=== PATIENT | female | born 1970 | race Caucasian/White ===

== ENCOUNTER 2018-05-17 07:50 | Day surgery (SDC) | payer MEDICAID ==
[~2018-05-17 07:50] MED LIST: Lactated Ringers 1,000 ML IV SCH; Sodium Chloride 0.9% 10 ML SDV IV PRN; Sodium Chloride 0.9% 10 ML Syringe FLUSH PRN; Sodium Chloride 0.9% 2.5 ML Syringe FLUSH PRN
--- NOTE | 2018-05-17 09:04 | PCM.PREANE ---
Preanesthetic Assessment - Anesthesia/Transfusion/Family Hx Anesthesia History: No Prior Anesthesia Other Type of Anesthesia Reaction Comment: "I wake up swinging or hallucinating " Family History of Anesthesia Reaction: No Transfusion History: No Prior Transfusion(s) - Review of Systems General: No Symptoms Pulmonary: No Symptoms Cardiovascular: No Symptoms Neurological: No Symptoms Other: Reports: None - Physical Assessment NPO Status Date: 05/16/18 NPO Status Time: 21:00 O2 Sat by Pulse Oximetry: 96 Respiratory Rate: 15 Vital Signs: Last Vital Signs Temp 97.2 F 05/17/18 08:10 Pulse 53 L 05/17/18 08:10 Resp 15 05/17/18 08:10 BP 118/69 05/17/18 08:10 Pulse Ox 96 05/17/18 08:10 Height: 5 ft 4 in Weight: 94.801 kg ASA Class: 2 Mental Status: Alert & Oriented x3 Airway Class: Mallampati = 1 Dentition: Reports: Normal Dentition ROM/Head Extension: Full Lungs: Clear to Auscultation, Normal Respiratory Effort Cardiovascular: Regular Rate, Regular Rhythm - Allergies Allergies/Adverse Reactions: Allergies Allergy/AdvReac Type Severity Reaction Status Date / Time walnut Allergy burning in Verified 05/02/17 12:32 MDT mouth, unable to see - Blood Blood Available: No - Anesthesia Plan Pre-Op Medication Ordered: None - Acknowledgements Anesthesia Type Planned: General Anesthesia, MAC Pt an Appropriate Candidate for the Planned Anesthesia: Yes Alternatives and Risks of Anesthesia Discussed w Pt/Guardian: Yes Pt/Guardian Understands and Agrees with Anesthesia Plan: Yes PreAnesthesia Questionnaire HEENT History: Reports: Other (See Below) Other HEENT History: states "occasional blurred vision due to gabapentin" Cardiovascular History: Reports: Arrhythmia, Other (See Below) Other Cardiovascular History: "palpitations", "leaky mitral valve" Respiratory History: Reports: Sleep Apnea Other Respiratory History: uses CPAP Gastrointestinal History: Reports: GERD Genitourinary History: Reports: None 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: , 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 Musculoskeletal History: Reports: Back Pain, Chronic, Fibromyalgia, Other (See Below) Other Musculoskeletal History: joint and muscle pain, Neurological History: Reports: Seizure Other Neuro History: anxiety induced seizure in 1999, none since Psychiatric History: Reports: Anxiety, Depression Endocrine/Metabolic History: Reports: Obesity/BMI 30+ Hematologic History: Reports: None Immunologic History: Reports: None Oncologic (Cancer) History: Reports: None Dermatologic History: Reports: None - Past Surgical History Head Surgeries/Procedures: Reports: None HEENT Surgical History: Reports: None Cardiovascular Surgical History: Reports: None Respiratory Surgical History: Reports: None GI Surgical History: Reports: Appendectomy Female Surgical History: Reports: Section, Hysterectomy, Tubal Ligation, Other (See Below) Other Female Surgeries/Procedures: exploratory laparoscopy, abd hysterectomy Endocrine Surgical History: Reports: None Neurological Surgical History: Reports: None Musculoskeletal Surgical History: Reports: Shoulder Surgery, Other (See Below) Other Musculoskeletal Surgeries/Procedures:: Right rotator cuff repair, Right foot surgery to attempt to remove glass Oncologic Surgical History: Reports: None Dermatological Surgical History: Reports: Other (See Below) - SUBSTANCE USE Smoking Status *Q: Never Smoker Recreational Drug Use History: No - HOME MEDS Home Medications: Home Meds Gabapentin 800 mg PO TID 11/16/15 [History] Meloxicam 7.5 mg PO BID 11/16/15 [History] DULoxetine HCl [Duloxetine HCl] 60 mg PO BEDTIME 05/02/17 [History] Metoprolol Succinate 25 mg PO BID 05/02/17 [History] Pantoprazole Sodium [Protonix] 40 mg PO BID 05/02/17 [History] - CURRENT (IN HOUSE) MEDS Current Meds: Current Medications Lactated Ringer's (Ringers, Lactated) 1,000 mls @ 125 mls/hr IV ASDIRECTED [facility] Last Admin: 05/17/18 08:40 Dose: 125 mls/hr Sodium Chloride (Saline Flush) 10 ml FLUSH ASDIRECTED PRN PRN Reason: Keep Vein Open Sodium Chloride (Saline Flush) 2.5 ml FLUSH ASDIRECTED PRN PRN Reason: Keep Vein Open Sodium Chloride (Normal Saline) 10 ml IV ASDIRECTED PRN PRN Reason: IV Use
[2018-05-17] MEDS ORDERED: Midazolam 1 MG/ML 2 ML SDV ONE (10:39)
[2018-05-17] MEDS ORDERED: Lidocaine 2% 5 ML SDV ONE (10:39)
[2018-05-17] MEDS ORDERED: fentaNYL 100 MCG/2 ML SDV ONE (10:39)
[2018-05-17] MEDS ORDERED: Propofol 200 MG/20 ML SDV ONE (10:53)
--- NOTE | 2018-05-17 11:18 | PCM.OPNOTE ---
- General Post-Op/Procedure Note Date of Surgery/Procedure: 05/17/18 Operative Procedure(s): Diagnostic EGD with biopsy Findings: Hiatal hernia, no signs of esophagitis Pre Op Diagnosis: Hiatal hernia Post-Op Diagnosis: same Anesthesia Technique: MAC Primary Surgeon: Macey Zheng Condition: Good
--- NOTE | 2018-05-17 12:14 | PCM.POSTAN ---
POST ANESTHESIA ASSESSMENT - MENTAL STATUS Mental Status: Alert, Oriented Free Text/Narrative:: initially quiet in PACU , after arrival awoke like a PTSD patient, required manual restraint (no straps or joshua), seizure rails applied. Later while still in phase 1. pt had second episode of agitation, again restrained by multiple providers. Released from phase 1 after 20 min of calm, verbal cooperative - RESPIRATORY Respiratory Status: Respiratory Rate WNL, Airway Patent, O2 Saturation Stable - CARDIOVASCULAR CV Status: Pulse Rate WNL, Blood Pressure Stable - GASTROINTESTINAL GI Status: No Symptoms - POST OP HYDRATION Hydration Status: Adequate & Stable
[2018-05-17 12:26] VITALS: BP 93/58
--- NOTE | 2018-05-17 13:54 | PCM48HPAN ---
Post Anesthesia Note - EVALUATION WITHIN 48HRS OF ANESTHETIC Vital Signs in Normal Range: Yes Patient Participated in Evaluation: Yes Respiratory Function Stable: Yes Airway Patent: Yes Cardiovascular Function Stable: Yes Hydration Status Stable: Yes Pain Control Satisfactory: Yes Nausea and Vomiting Control Satisfactory: Yes Mental Status Recovered: Yes Resp Rate: 15
--- NOTE | 2018-05-17 18:20 | OR ---
SURGEON: MEME CALVILLO MD DATE OF PROCEDURE: 05/17/2018 PREOPERATIVE DIAGNOSIS: Hiatal hernia. POSTOPERATIVE DIAGNOSIS: Hiatal hernia. PROCEDURE PERFORMED: Diagnostic esophagogastroduodenoscopy with biopsy. ANESTHESIA: MAC. INSTRUMENT USED: Olympus endoscope. EXTENT OF EXAM: To the second portion of duodenum. PREPARATION: Good. LIMITATIONS: None. INDICATIONS FOR EXAMINATION: The patient is a 48-year-old female who presents with right upper quadrant pain. She was diagnosed with biliary dyskinesia, but does have a longstanding history of reflux. A preoperative esophagram showed a small to moderate-sized hiatal hernia. Given this finding, the decision was made to proceed with a diagnostic EGD prior to her cholecystectomy. We discussed the procedure, expected perioperative course, and risks including bleeding, infection, or damage to surrounding structures. The patient verbalized understanding and wishes to proceed. PROCEDURE IN DETAIL: The patient was brought into the endoscopy suite and placed in a beach chair position. A time-out was completed verifying the patient's name, age, date of , allergies, and procedure to be performed. A bite-block was placed in the patient's mouth and monitored anesthesia care was induced. Continuous oxygen was provided via nasal cannula throughout the procedure. After adequate sedation was achieved, a well lubricated colonoscope was inserted into the patient's mouth and advanced under direct visualization to the level of the second portion of duodenum. This appeared normal and a photograph was taken. The scope was then straightened out and fully withdrawn while examining the color, texture, anatomy, and integrity of the mucosa of the upper GI tract. The patient's duodenum appeared normal. The scope was brought into the stomach and a photograph was taken of the pylorus and the GE junction. The patient was found to have a small to moderate-sized hiatal hernia. The gastric mucosa had no evidence of gross inflammation or ulceration. Biopsies were taken of the gastric antrum, body, and fundus, and sent for histologic review and H. pylori testing. The scope was then brought into the distal esophagus. The hiatal hernia sac had no evidence of any inflammation or ulcers in it. The GE junction appeared to be slightly patulous. A photograph was taken. The esophageal mucosa did appear normal, however, I took a biopsy about 1 cm above the GE junction. This was sent to Pathology. The scope was then removed and the procedure terminated. The patient tolerated the procedure well and was taken to the PACU in stable condition. ENDOSCOPIC DIAGNOSIS: Hiatal hernia. RECOMMENDATIONS: We will follow up on the biopsy results with the patient in 2 weeks. In the meantime, we will continue to proceed with a laparoscopic possible open cholecystectomy next week. PETER JOHNSON /[id number]
== END 2018-05-17 13:05 | disposition home or self-care (01) ==
LOC: MW.SDS 07:50
PROVIDERS: ATTEND Surgery
DX: K44.9 Diaphragmatic hernia without obstruction or gangrene (principal); K20.9 Esophagitis, unspecified; K21.9 Gastro-esophageal reflux disease without esophagitis; E66.9 Obesity, unspecified; Z68.35 Body mass index [BMI] 35.0-35.9, adult; F41.9 Anxiety disorder, unspecified; F32.9 Major depressive disorder, single episode, unspecified; Z79.899 Other long term (current) drug therapy
CPT/HCPCS: 43239; 88305; 88312; J2001; J2250; J2704; J3010; J7120

== ENCOUNTER 2018-05-24 06:22 | Day surgery (SDC) | payer MEDICAID ==
[~2018-05-24 06:22] MED LIST changes: -Lactated Ringers 1,000 ML IV SCH; +ceFAZolin 2 GM in Premix Bag 1 BAG IV ONE
[2018-05-24] MEDS: Lactated Ringers 1,000 ML IV SCH ×2 (06:50→16:58)
--- NOTE | 2018-05-24 07:14 | PCM.PREANE ---
Preanesthetic Assessment - Anesthesia/Transfusion/Family Hx Anesthesia History: Prior Anesthesia Reaction Other Type of Anesthesia Reaction Comment: "I wake up swinging or hallucinating " Family History of Anesthesia Reaction: No Transfusion History: No Prior Transfusion(s) - Review of Systems General: No Symptoms Pulmonary: No Symptoms Cardiovascular: No Symptoms Gastrointestinal: No Symptoms Neurological: No Symptoms Other: Reports: None - Physical Assessment NPO Status Date: 05/23/18 Height: 5 ft 4 in Weight: 94.801 kg ASA Class: 2 Mental Status: Alert & Oriented x3 Airway Class: Mallampati = 2 Dentition: Reports: Normal Dentition (crooked teeth and narrow palatal arch) ROM/Head Extension: Full Lungs: Clear to Auscultation, Normal Respiratory Effort Cardiovascular: Regular Rate, Regular Rhythm - Allergies Allergies/Adverse Reactions: Allergies Allergy/AdvReac Type Severity Reaction Status Date / Time walnut Allergy burning in Verified 05/21/18 07:08 mouth, unable to see - Blood Blood Available: No - Anesthesia Plan Pre-Op Medication Ordered: Other (scop) - Acknowledgements Anesthesia Type Planned: General Anesthesia Pt an Appropriate Candidate for the Planned Anesthesia: Yes Alternatives and Risks of Anesthesia Discussed w Pt/Guardian: Yes Pt/Guardian Understands and Agrees with Anesthesia Plan: Yes Additional Comments: PPMH: fibromyalgia, gerd(x controled with meds), PTSD like emergences from [place] PLAN: get, consider precidex during emergence PreAnesthesia Questionnaire HEENT History: Reports: None Other HEENT History: states "occasional blurred vision due to gabapentin" Cardiovascular History: Reports: Arrhythmia, Other (See Below) Other Cardiovascular History: palpitations, SVT, NSVT, PVCs Respiratory History: Reports: SOB Other Respiratory History: uses CPAP Gastrointestinal History: Reports: GERD Genitourinary History: Reports: None 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: , 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 , Other (See Below) Other OB/BYN History: irregular menses, pelvic pain Musculoskeletal History: Reports: Fibromyalgia, Other (See Below) Other Musculoskeletal History: joint and muscle pain, shoulder impingement bilateral Neurological History: Reports: Other (See Below) Other Neuro History: 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 Psychiatric History: Reports: Other (See Below) Other Psychiatric History: chronic fatigue Endocrine/Metabolic History: Reports: None Hematologic History: Reports: None Immunologic History: Reports: None Oncologic (Cancer) History: Reports: None Dermatologic History: Reports: None - Past Surgical History Head Surgeries/Procedures: Reports: None HEENT Surgical History: Reports: None Cardiovascular Surgical History: Reports: None Respiratory Surgical History: Reports: None GI Surgical History: Reports: Appendectomy, EGD Female Surgical History: Reports: Section, Other (See Below) Other Female Surgeries/Procedures: hysteroscopy with essure Endocrine Surgical History: Reports: None Neurological Surgical History: Reports: None Musculoskeletal Surgical History: Reports: Shoulder Surgery, Other (See Below) Other Musculoskeletal Surgeries/Procedures:: Right shoulder arthoscopy, Right foot surgery Oncologic Surgical History: Reports: None Dermatological Surgical History: Reports: None - SUBSTANCE USE Smoking Status *Q: Never Smoker Recreational Drug Use History: No - HOME MEDS Home Medications: Home Meds Gabapentin 800 mg PO TID 11/16/15 [History] Meloxicam 7.5 mg PO BID 11/16/15 [History] DULoxetine HCl [Duloxetine HCl] 60 mg PO BEDTIME 05/02/17 [History] Metoprolol Succinate 25 mg PO BID 05/02/17 [History] Pantoprazole Sodium [Protonix] 40 mg PO BID 05/02/17 [History] - CURRENT (IN HOUSE) MEDS Current Meds: Current Medications Lactated Ringer's (Ringers, Lactated) 1,000 mls @ 125 mls/hr IV ASDIRECTED [facility] Sodium Chloride (Saline Flush) 10 ml FLUSH ASDIRECTED PRN PRN Reason: Keep Vein Open Sodium Chloride (Saline Flush) 2.5 ml FLUSH ASDIRECTED PRN PRN Reason: Keep Vein Open Sodium Chloride (Normal Saline) 10 ml IV ASDIRECTED PRN PRN Reason: IV Use Discontinued Medications Cefazolin Sodium/Dextrose 2 gm (/ Premix) 50 mls @ 100 mls/hr IV ONETIME ONE Stop: 05/21/18 11:12
[2018-05-24] MEDS ORDERED: Ondansetron 4 MG/2 ML SDV ONE (07:15)
[2018-05-24] MEDS ORDERED: Midazolam 1 MG/ML 2 ML SDV ONE ×2 (07:16→08:11)
[2018-05-24] MEDS ORDERED: Propofol 200 MG/20 ML SDV ONE (07:16)
[2018-05-24] MEDS ORDERED: Glycopyrrolate 0.2 MG/ML SDV ONE (07:16)
[2018-05-24] MEDS ORDERED: Rocuronium 100 MG/10 ML Syringe ONE (07:16)
[2018-05-24] MEDS ORDERED: fentaNYL 100 MCG/2 ML SDV ONE ×3 (07:16→10:05)
[2018-05-24] MEDS ORDERED: Scopolamine 1.5 MG Transdermal Patch TRDERM PRN (07:16)
[2018-05-24] MEDS ORDERED: Morphine 10 MG/ML Syringe ONE (07:23)
[2018-05-24] MEDS ORDERED: Sugammadex Sodium 200 MG/2 ML VIAL ONE (07:35)
[2018-05-24] MEDS ORDERED: Desflurane 240 ML Bottle ONE (07:35)
[2018-05-24] MEDS ORDERED: Bupivacaine 0.5% 10 ML SDV ONE (07:40)
[2018-05-24] MEDS ORDERED: Sodium Chloride 0.9% 20 ML ONE (08:09)
[2018-05-24] MEDS ORDERED: ceFAZolin 1 GM Vial ONE (08:09)
[2018-05-24] MEDS ORDERED: Phenylephrine/Normal Saline 100 MCG/ML 10 ML Syringe ONE (09:06)
--- NOTE | 2018-05-24 09:51 | PCM.OPNOTE ---
- General Post-Op/Procedure Note Date of Surgery/Procedure: 05/24/18 Operative Procedure(s): laproscopic cholecystectomy Findings: normal gallbladder Pre Op Diagnosis: biliary dyskinesia Post-Op Diagnosis: same Anesthesia Technique: General ET Tube Primary Surgeon: Macey Zheng Secondary Surgeon: Jamila Mcduffie Pathology: gallbladder Fluid Replacement, Intraop: 1,600 Output, Urine Amount: 40 EBL in mLs: 10 Condition: Good
[2018-05-24] MEDS ORDERED: HYDROmorphone 2 MG/ML SDV IVPUSH ONE (10:10)
[2018-05-24] MEDS ORDERED: Acetaminophen/oxyCODONE 325-5 MG Tab PO PRN (10:10)
[2018-05-24] MEDS ORDERED: Albuterol 0.083% 2.5 MG/3 ML Neb Soln NEB PRN (10:11)
[2018-05-24] MEDS ORDERED: Cyclobenzaprine 10 MG Tab PO PRN (10:11)
[2018-05-24] MEDS ORDERED: EPINEPHrine 1:10,000 1 MG/10 ML Syringe IVPUSH PRN (10:11)
[2018-05-24] MEDS ORDERED: Atropine 0.1 MG/ML 10 ML Syringe IVPUSH PRN ×2 (10:11)
[2018-05-24] MEDS ORDERED: 50% Dextrose in Water 50 ML Syringe IVPUSH PRN (10:11)
[2018-05-24] MEDS ORDERED: Naloxone 0.4 MG/ML Syringe IVPUSH PRN (10:11)
[2018-05-24] MEDS: fentaNYL 100 MCG/2 ML SDV IVPUSH PRN ×2 (10:12→10:19)
[2018-05-24] MEDS ORDERED: HYDROmorphone 2 MG/ML Syringe ONE (10:25)
[2018-05-24] MEDS: HYDROmorphone 2 MG/ML Syringe IVPUSH ONE ×2 (10:31→10:45)
--- NOTE | 2018-05-24 11:07 | PCM.POSTAN ---
POST ANESTHESIA ASSESSMENT - MENTAL STATUS Mental Status: Alert, Oriented - RESPIRATORY Respiratory Status: Respiratory Rate WNL, Airway Patent, O2 Saturation Stable - CARDIOVASCULAR CV Status: Pulse Rate WNL, Blood Pressure Stable - GASTROINTESTINAL GI Status: No Symptoms - POST OP HYDRATION Hydration Status: Adequate & Stable
--- NOTE | 2018-05-24 12:53 | PCM48HPAN ---
Post Anesthesia Note - EVALUATION WITHIN 48HRS OF ANESTHETIC Vital Signs in Normal Range: Yes Patient Participated in Evaluation: Yes Respiratory Function Stable: Yes Airway Patent: Yes Cardiovascular Function Stable: Yes Hydration Status Stable: Yes Pain Control Satisfactory: Yes Nausea and Vomiting Control Satisfactory: Yes Mental Status Recovered: Yes Resp Rate: 8
--- NOTE | 2018-05-24 13:20 | OR ---
SURGEON: MEME CALVILLO MD DATE OF PROCEDURE: 05/24/2018 PREOPERATIVE DIAGNOSIS: Biliary dyskinesia. POSTOPERATIVE DIAGNOSIS: Biliary dyskinesia. PROCEDURE PERFORMED: Laparoscopic cholecystectomy. SPECIAL TRACKWORK BLACKSMITH: Assistant Professor Of Archaeology: Jamila Mcduffie DO. ANESTHESIA: General endotracheal anesthesia. FLUIDS: 1500 mL of crystalloid. ESTIMATED BLOOD LOSS: 10 mL. URINE OUTPUT: 40 mL. FINDINGS: Normal appearing gallbladder. COMPLICATIONS: None. INDICATIONS: The patient is a 48-year-old female who presented to my office with biliary dyskinesia. I explained the need for a cholecystectomy. I explained the procedure, expected perioperative course, and risks including bleeding, infection, or damage to surrounding structures. The patient verbalized understanding and wishes to proceed. PROCEDURE IN DETAIL: The patient was brought into the OR and placed on the OR table in supine position. A time-out was completed verifying the patient's name, age, date of , allergies, and procedure to be performed. General endotracheal anesthesia was induced. The left arm was tucked to the patient's side and a Bui catheter placed. The abdomen was prepped and draped in usual standard fashion. I anesthetized the infraumbilical midline just below the umbilicus with 0.5% Marcaine plain. A 2 cm incision was made along the midline using an 11 blade. Cautery was used to dissect down to the level of subcutaneous fat. I bluntly dissected down to the level of the fascia. The fascia was elevated with Phan's and incised sharply with the Orourke scissors. The rectus muscle was swept to the side and I identified the peritoneum and posterior fascia. It was elevated with tonsils and incised sharply with the Orourke scissors. A 12 mm Milton trocar was placed in the abdomen. I initially started the insufflation, but encountered resistance. The trocar was removed and exchanged for a longer trocar. With this, I was able to get deeper into the abdomen to get better insufflation. The abdomen was then insufflated and a 5 mm 30 degree scope inserted. I inspected the area underneath my initial trocar placement. There appeared to be no damage to surrounding structures. The patient had a small amount of preperitoneal air. She was placed in reverse Trendelenburg position and airplaned slightly to the left. 5 mm trocars were placed in the following locations under direct visualization; one in the epigastric area, one in the right flank, and one 2 fingerbreadths below the right subcostal margin in the midclavicular line. The dome of the gallbladder was grasped and elevated cranially. Using a combination of hook cautery and blunt dissection, I gently dissected out the cystic duct and artery. I identified the node of Calot. There was a robust lymphatic vessel going into the node, so I doubly clipped and ligated this. I cleared away one-third of the cystic plate and could see my critical view. I triply clipped and ligated the cystic duct. I doubly clipped and ligated the cystic artery. The gallbladder was dissected free of the cystic plate using hook cautery. Once it was free from the liver bed, I then placed it in an EndoCatch bag and removed it through the infraumbilical port site. The trocar was placed back in the abdomen and I inspected my operative field. It was completely hemostatic with no evidence of biliary leakage. Since there was no drainage or significant bleeding during the case, I did not irrigate the abdomen. The 5 mm trocars were removed under direct visualization and the abdomen allowed to desufflate. The 12 mm trocar was then removed as well. I closed the fascia at the infraumbilical port site with interrupted 0 Vicryl sutures. The subcutaneous fat layer was closed in layers using interrupted 3-0 Vicryl sutures. The skin was closed with a running 4-0 Monocryl stitch. The 5 mm trocar sites were closed with interrupted 4-0 Monocryl sutures. Steri-Strips and sterile dressings were applied. The patient tolerated the procedure well and was taken to PACU in stable condition. All counts were complete and correct at the end of the case. PETER JOHNSON /[id number]
[2018-05-24] MEDS ORDERED: diphenhydrAMINE 50 MG/ML SDV IVPUSH PRN (14:17)
[2018-05-24] MEDS ORDERED: HYDROmorphone 1 MG/ML Syringe IVPUSH PRN (14:17)
[2018-05-24] MEDS ORDERED: Ondansetron 4 MG/2 ML SDV IVPUSH PRN (14:17)
[2018-05-24] MEDS ORDERED: Promethazine 25 MG/ML SDV IM PRN (14:17)
--- NOTE | 2018-05-24 14:28 | PCM.SN ---
- Free Text/Narrative Note: Patient is very somnolent in the post operative care area. She is having difficulty maintaining her oxygen saturations on room air. She has a history of SHASHANK. She will be admitted overnight for close observation.
[2018-05-24] MEDS: Gabapentin 800 MG Tab PO SCH ×2 (15:24→21:10)
[2018-05-24] MEDS: Ketorolac 30 MG/ML SDV IVPUSH SCH ×2 (15:24→19:49)
[2018-05-24] MEDS: Metoprolol Succinate 25 MG Tab.ER PO SCH ×2 (15:27→21:13)
[2018-05-24] MEDS: DULoxetine 60 MG Cap PO SCH (19:49)
[2018-05-24] MEDS: Meloxicam 7.5 MG Tab PO SCH (21:10)
[2018-05-25] MEDS: Lactated Ringers 1,000 ML IV SCH (01:01)
[2018-05-25] MEDS: Ketorolac 30 MG/ML SDV IVPUSH SCH ×2 (03:15→08:51)
[2018-05-25] MEDS: Gabapentin 800 MG Tab PO SCH (06:33)
[2018-05-25] MEDS ORDERED: Pantoprazole 40 MG Tab.CR PO SCH (07:30)
[2018-05-25] MEDS ORDERED: Acetaminophen/HYDROcodone 325-5 MG Tab PO PRN (08:04)
[2018-05-25] MEDS: Meloxicam 7.5 MG Tab PO SCH (08:51)
--- NOTE | 2018-05-25 09:15 | PCM.SURGPN ---
- General Info Functional Status: Reports: Pain Controlled, Tolerating Diet, Ambulating, Urinating - Review of Systems General: Reports: No Symptoms HEENT: Reports: No Symptoms Pulmonary: Reports: No Symptoms Cardiovascular: Reports: No Symptoms Gastrointestinal: Reports: No Symptoms Musculoskeletal: Reports: No Symptoms Skin: Reports: No Symptoms - Patient Data Vitals - Most Recent: Last Vital Signs Temp 36.7 C 05/25/18 07:58 Pulse 57 L 05/25/18 07:58 Resp 16 05/25/18 07:58 BP 97/52 L 05/25/18 07:58 Pulse Ox 93 L 05/25/18 07:58 Weight - Most Recent: 94.801 kg I&O - Last 24 Hours: Intake & Output 05/24/18 05/25/18 05/25/18 22:59 06:59 14:59 Intake Total 610 1789 Output Total 0 150 Balance 610 1639 Med Orders - Current: Current Medications Hydrocodone Bitart/Acetaminophen ([place] 325-5 Mg) 2 tab PO Q4H PRN PRN Reason: Abdominal Pain Diphenhydramine HCl (Benadryl) 25 mg IVPUSH Q4H PRN PRN Reason: Itching Duloxetine HCl (Cymbalta) 60 mg PO DAILY [facility] Last Admin: 05/24/18 19:49 Dose: 60 mg Gabapentin (Neurontin) 800 mg PO TID [facility] Last Admin: 05/25/18 06:33 Dose: 800 mg Hydromorphone HCl (Dilaudid) 0.5 mg IVPUSH Q1H PRN PRN Reason: Pain (severe 7-10) Lactated Ringer's (Ringers, Lactated) 1,000 mls @ 125 mls/hr IV ASDIRECTED [facility] Last Admin: 05/25/18 01:01 Dose: 125 mls/hr Meloxicam (Mobic) 7.5 mg PO BID [facility] Last Admin: 05/25/18 08:51 Dose: 7.5 mg Metoprolol Succinate (Toprol Xl) 25 mg PO BID [facility] Last Admin: 05/24/18 21:13 Dose: Not Given Ondansetron HCl (Zofran) 4 mg IVPUSH Q6H PRN PRN Reason: Nausea/Vomiting Pantoprazole Sodium (Protonix) 40 mg PO ACBREAKFAST [facility] Last Admin: 05/25/18 06:33 Dose: 40 mg Promethazine HCl (Phenergan) 25 mg IM Q6H PRN PRN Reason: Nausea Sodium Chloride (Saline Flush) 10 ml FLUSH ASDIRECTED PRN PRN Reason: Keep Vein Open Sodium Chloride (Saline Flush) 2.5 ml FLUSH ASDIRECTED PRN PRN Reason: Keep Vein Open Sodium Chloride (Normal Saline) 10 ml IV ASDIRECTED PRN PRN Reason: IV Use Discontinued Medications Albuterol (Proventil Neb Soln) 2.5 mg NEB ONETIME PRN PRN Reason: Wheezing Atropine Sulfate (Atropine 0.1 Mg/Ml) 0.5 mg IVPUSH ASDIRECTED PRN PRN Reason: Hypo-perfusion Atropine Sulfate (Atropine 0.1 Mg/Ml) 1 mg IVPUSH ASDIRECTED PRN PRN Reason: Hypo-Perfusion Bupivacaine HCl (Sensorcaine-Mpf 0.5%) Confirm Administered Dose 20 ml .ROUTE .STK-MED ONE Stop: 05/24/18 07:41 Cefazolin Sodium (Ancef) Confirm Administered Dose 2 gm .ROUTE .STK-MED ONE Stop: 05/24/18 08:10 Cyclobenzaprine HCl (Flexeril) 10 mg PO TID PRN PRN Reason: Muscle Spasm Desflurane (Suprane) Confirm Administered Dose 240 ml .ROUTE .STK-MED ONE Stop: 05/24/18 07:36 Dextrose/Water (Dextrose 50% In Water) 50 ml IVPUSH ASDIRECTED PRN PRN Reason: Hypoglycemia Epinephrine HCl (Epinephrine 1:10,000) 1 mg IVPUSH ASDIRECTED PRN PRN Reason: ACLS Guidelines Fentanyl (Sublimaze) Confirm Administered Dose 100 mcg .ROUTE .STK-MED ONE Stop: 05/24/18 07:17 Fentanyl (Sublimaze) Confirm Administered Dose 100 mcg .ROUTE .STK-MED ONE Stop: 05/24/18 08:38 Fentanyl (Sublimaze) Confirm Administered Dose 100 mcg .ROUTE .STK-MED ONE Stop: 05/24/18 10:06 Last Admin: 05/24/18 14:42 Dose: Not Given Fentanyl (Sublimaze) 50 - 100 mcg IVPUSH Q5M PRN PRN Reason: Pain Last Admin: 05/24/18 10:19 Dose: 50 mcg Glycopyrrolate (Robinul) Confirm Administered Dose 0.2 mg .ROUTE .STK-MED ONE Stop: 05/24/18 07:17 Hydromorphone HCl (Dilaudid) 2 mg IVPUSH ONETIME ONE Stop: 05/24/18 10:11 Last Admin: 05/24/18 14:43 Dose: Not Given Hydromorphone HCl (Dilaudid) 2 mg IVPUSH ONETIME ONE Stop: 05/24/18 10:31 Last Admin: 05/24/18 10:45 Dose: 1 mg Hydromorphone HCl (Dilaudid) Confirm Administered Dose 2 mg .ROUTE .STK-MED ONE Stop: 05/24/18 10:26 Last Admin: 05/24/18 14:45 Dose: Not Given Cefazolin Sodium/Dextrose 2 gm (/ Premix) 50 mls @ 100 mls/hr IV ONETIME ONE Stop: 05/21/18 11:12 Lidocaine HCl (Xylocaine-Mpf 1%) Confirm Administered Dose 5 mls @ as directed .ROUTE .STK-MED ONE Stop: 05/24/18 07:16 Acetaminophen (Ofirmev) Confirm Administered Dose 100 mls @ as directed IV .STK- MED ONE Stop: 05/24/18 07:36 Sodium Chloride (Normal Saline) Confirm Administered Dose 20 mls @ as directed .ROUTE .STK-MED ONE Stop: 05/24/18 08:10 Ketorolac Tromethamine (Toradol) 30 mg IVPUSH Q6H LATOSHA Stop: 05/25/18 08:31 Last Admin: 05/25/18 08:51 Dose: 30 mg Midazolam HCl (Versed 1 Mg/Ml) Confirm Administered Dose 2 mg .ROUTE .STK-MED ONE Stop: 05/24/18 07:17 Midazolam HCl (Versed 1 Mg/Ml) Confirm Administered Dose 2 mg .ROUTE .STK-MED ONE Stop: 05/24/18 08:12 Morphine Sulfate (Morphine) Confirm Administered Dose 10 mg .ROUTE .STK-MED ONE Stop: 05/24/18 07:24 Naloxone HCl (Narcan) 0.1 mg IVPUSH ASDIRECTED PRN PRN Reason: Respiratory Depression Ondansetron HCl (Zofran) Confirm Administered Dose 4 mg .ROUTE .STK-MED ONE Stop: 05/24/18 07:16 Oxycodone/Acetaminophen (Percocet 325-5 Mg) 2 tab PO Q4H PRN PRN Reason: Abdominal Pain Last Admin: 05/24/18 23:24 Dose: 2 tab Phenylephrine HCl (Phenylephrine In Ns 100 Mcg/Ml) Confirm Administered Dose 1 mg .ROUTE .STK-MED ONE Stop: 05/24/18 09:07 Propofol (Diprivan 20 Ml) Confirm Administered Dose 400 mg .ROUTE .STK-MED ONE Stop: 05/24/18 07:17 Rocuronium [place] (Zemuron) Confirm Administered Dose 100 mg .ROUTE .STK-MED ONE Stop: 05/24/18 07:17 Scopolamine (Transderm-Scop) 1.5 mg TRDERM Q72H PRN PRN Reason: Nausea/Vomiting Last Admin: 05/24/18 08:01 Dose: 1.5 mg Sugammadex Sodium (Bridion) Confirm Administered Dose 200 mg .ROUTE .STK-MED ONE Stop: 05/24/18 07:36 - Exam Wound/Incisions: Healing Well, Drainage (minimal) General: Alert, Oriented, Cooperative, No Acute Distress Lungs: Normal Respiratory Effort Cardiovascular: Regular Rate GI/Abdominal Exam: Soft, Non-Tender, No Distention, No Mass - Problem List & Annotations (1) Biliary dyskinesia SNOMED Code(s): 760043164 Code(s): K82.8 - OTHER SPECIFIED DISEASES OF GALLBLADDER Status: Acute Current Visit: Yes - Problem List Review Problem List Initiated/Reviewed/Updated: Yes - My Orders Last 24 Hours: Active Orders 24 hr Category Date Time Status Antiembolic Devices [RC] .Routine Care 05/24/18 14:20 Active Communication Order [RC] DAILY Care 05/24/18 14:22 Active Oxygen Therapy [RC] PRN Care 05/24/18 10:11 Active Oxygen Therapy [RC] PRN Care 05/24/18 14:17 Active Pulse Oximetry [RC] CONTINUOUS Care 05/24/18 14:19 Active RT Aerosol Therapy [RC] ASDIRECTED Care 05/24/18 10:11 Active RT Aerosol Therapy [RC] ASDIRECTED Care 05/24/18 10:11 Active Ready for Discharge [RC] PER UNIT ROUTINE Care 05/24/18 10:15 Active Up ad Alyssa [RC] ASDIRECTED Care 05/24/18 14:17 Active VTE/DVT Education [RC] PER UNIT ROUTINE Care 05/24/18 14:20 Active Vital Signs [RC] PER UNIT ROUTINE Care 05/24/18 14:17 Active Vital Signs [RC] Q5M Care 05/24/18 10:11 Active Regular Diet [DIET] Diet 05/24/18 Dinner Active Acetaminophen/HYDROcodone [[place]ra 325-5 MG] Med 05/25/18 08:04 Active 2 tab PO Q4H PRN DULoxetine [Cymbalta] Med 05/24/18 20:00 Active 60 mg PO DAILY Gabapentin [Neurontin] Med 05/24/18 15:00 Active 800 mg PO TID HYDROmorphone [Dilaudid] Med 05/24/18 14:17 Active 0.5 mg IVPUSH Q1H PRN Meloxicam [Mobic] Med 05/24/18 21:00 Active 7.5 mg PO BID Metoprolol Succinate [Toprol XL] Med 05/24/18 14:30 Active 25 mg PO BID Ondansetron [Zofran] Med 05/24/18 14:17 Active 4 mg IVPUSH Q6H PRN Pantoprazole [ProTONIX] Med 05/25/18 07:30 Active 40 mg PO ACBREAKFAST Promethazine [Phenergan] Med 05/24/18 14:17 Active 25 mg IM Q6H PRN diphenhydrAMINE [Benadryl] Med 05/24/18 14:17 Active 25 mg IVPUSH Q4H PRN Abdominal Binder [OM.PC] Per Unit Routine Oth 05/24/18 14:19 Ordered DVT/VTE Prophylaxis Reflex [OM.PC] Routine Oth 05/24/18 14:17 Ordered Medication Orders Hydrocodone Bitart/Acetaminophen ([place] 325-5 Mg) 2 tab PO Q4H PRN PRN Reason: Abdominal Pain Diphenhydramine HCl (Benadryl) 25 mg IVPUSH Q4H PRN PRN Reason: Itching Duloxetine HCl (Cymbalta) 60 mg PO DAILY [facility] Last Admin: 05/24/18 19:49 Dose: 60 mg Gabapentin (Neurontin) 800 mg PO TID [facility] Last Admin: 05/25/18 06:33 Dose: 800 mg Admin: 05/24/18 21:10 Dose: 800 mg Admin: 05/24/18 15:24 Dose: 800 mg Hydromorphone HCl (Dilaudid) 0.5 mg IVPUSH Q1H PRN PRN Reason: Pain (severe 7-10) Lactated Ringer's (Ringers, Lactated) 1,000 mls @ 125 mls/hr IV ASDIRECTED [facility] Last Admin: 05/25/18 01:01 Dose: 125 mls/hr Infusion: 05/25/18 00:58 Dose: 125 mls/hr Admin: 05/24/18 16:58 Dose: 125 mls/hr Infusion: 05/24/18 14:50 Dose: 125 mls/hr Admin: 05/24/18 06:50 Dose: 125 mls/hr Meloxicam (Mobic) 7.5 mg PO BID [facility] Last Admin: 05/25/18 08:51 Dose: 7.5 mg Admin: 05/24/18 21:10 Dose: Not Given Metoprolol Succinate (Toprol Xl) 25 mg PO BID [facility] Last Admin: 05/24/18 21:13 Dose: Not Given Admin: 05/24/18 15:27 Dose: Not Given Ondansetron HCl (Zofran) 4 mg IVPUSH Q6H PRN PRN Reason: Nausea/Vomiting Pantoprazole Sodium (Protonix) 40 mg PO ACBREAKFAST [facility] Last Admin: 05/25/18 06:33 Dose: 40 mg Promethazine HCl (Phenergan) 25 mg IM Q6H PRN PRN Reason: Nausea Sodium Chloride (Saline Flush) 10 ml FLUSH ASDIRECTED PRN PRN Reason: Keep Vein Open Sodium Chloride (Saline Flush) 2.5 ml FLUSH ASDIRECTED PRN PRN Reason: Keep Vein Open Sodium Chloride (Normal Saline) 10 ml IV ASDIRECTED PRN PRN Reason: IV Use - Plan Plan (Free Text/Narrative):: Patient appears well this morning. We reviewed the discharge instructions together. I switched her pain medicines from Percocet to Palmyra to see if this improves her pain control. She is okay to discharge home.
[2018-05-25] MEDS: DULoxetine 60 MG Cap PO SCH (09:41)
[2018-05-25] MEDS: Metoprolol Succinate 25 MG Tab.ER PO SCH (10:22)
[2018-05-25 10:23] VITALS: BP 97/47
== END 2018-05-25 10:40 | disposition home or self-care (01) ==
LOC: MW.SDS 06:22 → MW.MS 13:18 → MW.SDS 05-25 10:40
PROVIDERS: ATTEND Surgery
DX: K80.10 Calculus of gallbladder with chronic cholecystitis without obstruction (principal); K21.9 Gastro-esophageal reflux disease without esophagitis; K44.9 Diaphragmatic hernia without obstruction or gangrene; Z91.018 Allergy to other foods; Z79.1 Long term (current) use of non-steroidal anti-inflammatories (NSAID); Z79.899 Other long term (current) drug therapy
CPT/HCPCS: 47562; A9270; J0131; J0690; J1170; J1885; J2001; J2250; J2270; J2370; J2405; J2704; J3010; J3490; J7120; 88304

== ENCOUNTER 2019-07-13 21:24 | Emergency (ER) | payer MEDICAID ==
[2019-07-13] MEDS ORDERED: Sodium Chloride 0.9% 10 ML SDV IV PRN (21:27)
[2019-07-13] MEDS ORDERED: Sodium Chloride 0.9% 2.5 ML Syringe FLUSH PRN (21:27)
[2019-07-13] MEDS ORDERED: Sodium Chloride 0.9% 10 ML Syringe FLUSH PRN (21:27)
--- NOTE | 2019-07-13 21:30 | EDM.PDOC ---
ED HPI GENERAL MEDICAL PROBLEM - General Stated Complaint: CHEST PAIN Time Seen by Provider: 07/13/19 21:26 Source of Information: Reports: Patient, EMS History Limitations: Reports: No Limitations - History of Present Illness INITIAL COMMENTS - FREE TEXT/NARRATIVE: 49-year-old female with a past medical history of a hiatal hernia status post repair in 2019, fibromyalgia presenting with chest pain. Patient reports a 2- hour history of left-sided upper chest pain rating to the back. Describes it as "a bubbly feeling"/uneasiness. Constant since the onset, nothing makes it better or worse. Reports some mild nausea that since subsided. No self treatment prior to arrival, no other complaints. Patient denies history of venous thromboembolism, hemoptysis, lower extremity swelling or pain, hormonal medication/product usage, recent long travel or surgery or immobilization, or personal history of malignancy. Left Upper Abdomen Pain Score (Numeric/FACES): 8 - Related Data Allergies Allergy/AdvReac Type Severity Reaction Status Date / Time walnut Allergy burning in Verified 07/13/19 21:30 mouth, unable to see Home Meds: Home Meds Gabapentin 800 mg PO BID 11/16/15 [History] Meloxicam 15 mg PO DAILY 11/16/15 [History] DULoxetine HCl [Duloxetine HCl] 90 mg PO BEDTIME 05/02/17 [History] Metoprolol Succinate 25 mg PO BID 05/02/17 [History] Magnesium Chloride [Mag-64] 64 mg PO DAILY 07/13/19 [History] Potassium Gluconate [Potassium] 99 mg PO DAILY 07/13/19 [History] Past Medical History HEENT History: Reports: None Other HEENT History: states "occasional blurred vision due to gabapentin" Cardiovascular History: Reports: Arrhythmia, Other (See Below) Other Cardiovascular History: palpitations, SVT, NSVT, PVCs Respiratory History: Reports: SOB Other Respiratory History: uses CPAP Gastrointestinal History: Reports: GERD Other Gastrointestinal History: s/p hiatal hernia repair (2019) Genitourinary History: Reports: None BUILDING DISMANTLER History: Reports: , Spontaneous , Other (See Below) Other BUILDING DISMANTLER History: irregular menses, pelvic pain Musculoskeletal History: Reports: Fibromyalgia, Other (See Below) Other Musculoskeletal History: joint and muscle pain, shoulder impingement bilateral Neurological History: Reports: Other (See Below) Other Neuro History: 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 Psychiatric History: Reports: Other (See Below) Other Psychiatric History: chronic fatigue Endocrine/Metabolic History: Reports: None Hematologic History: Reports: None Immunologic History: Reports: None Oncologic (Cancer) History: Reports: None Dermatologic History: Reports: None - Past Surgical History GI Surgical History: Reports: Appendectomy Social & Family History - Family History Family Medical History: Noncontributory - Caffeine Use Caffeine Use: Reports: Coffee ED ROS GENERAL - Review of Systems Review Of Systems: See Below Constitutional: Denies: Fever, Chills HEENT: Reports: No Symptoms Respiratory: Denies: Shortness of Breath, Cough, Hemoptysis Cardiovascular: Reports: Chest Pain. Denies: Edema, Lightheadedness, Palpitations, Syncope Endocrine: Reports: No Symptoms GI/Abdominal: Reports: Abdominal Pain, Nausea. Denies: Black Stool, Bloody Stool, Constipation, Diarrhea, Distension, Hematemesis, Hematochezia, Vomiting : Reports: No Symptoms Musculoskeletal: Reports: No Symptoms Skin: Reports: No Symptoms Neurological: Denies: Headache, Numbness, Paresthesia, Tingling, Tremors, Weakness Psychiatric: Reports: No Symptoms Hematologic/Lymphatic: Reports: No Symptoms Immunologic: Reports: No Symptoms ED EXAM, GENERAL - Physical Exam Exam: See Below Free Text/Narrative:: Vital signs reviewed. Nursing notes reviewed. Constitutional: Awake, alert, non-distressed. Head: Normocephalic, atraumatic. Eyes: EOMI, conjunctiva normal, no discharge, no scleral icterus. Ears, Nose, Throat: External ears and ears normal, moist oral mucosa. Cardiovascular: 2+ radial pulse, capillary refill less than 2 seconds. Clear to auscultation, no M/R/G, RRR Pulmonary: normal work of breathing, no accessory muscle use. Clear to auscultation bilaterally Abdomen/GI: Soft, minimal left upper quadrant tenderness, nondistended, no guarding or rigidity, no masses. Musculoskeletal: No deformities. Integumentary: Appropriate color for ethnicity, warm, dry, no pallor or jaundice , no rash. Neurologic: Alert, answering questions appropriately, normal speech, no facial droop, moving all extremities well. Cranial nerves II through XII intact Psychiatric: Appropriate mood and affect, normal thought process. EKG INTERPRETATION EKG Date: 07/13/19 Time: 21:25 Rhythm: NSR Rate (Beats/Min): 66 [place]: Normal P-Wave: Present QRS: Normal ST-T: Normal QT: Normal Course - Vital Signs Text/Narrative:: Patient hemodynamically stable, afebrile, well-appearing, looks nontoxic. Differential diagnosis includes but is not limited to: Hiatal hernia, GERD, reflux, acute coronary syndrome/myocardial infarction, pneumothorax, pleural effusion, pericardial effusion, thoracic aortic dissection, pneumonia, pulmonary embolism, atypical chest pain, etc. 2151: Hemodynamically stable. IV access established and labs sent, awaiting labs to result. CBC appears reassuring. Twelve-lead EKG looks nonischemic. GI cocktail and Tylenol ordered. Patient resting comfortably. Laboratory interpretation: CBC reassuring. Electrolytes are normal. Creatinine normal. Hepatic markers are normal. Troponin testing is negative. Lipase normal. test negative. 2058: Chest x-ray read returned, showing no acute cardiopulmonary disease, large hiatal hernia with air-fluid level. No evidence of pleural effusion or pneumothorax. Patient states her chest discomfort started around 1530 this afternoon. Initial troponin was drawn at 2133, which makes it a 6-hour troponin and patient reports constant chest discomfort. Therefore, a single troponin should be satisfactory to rule out myocardial ischemia in conjunction with a nonischemic EKG. No historical risk factors to suggest venous thromboembolism, additionally, patient is not short of breath hypoxic, or hypotensive. She is not significantly hypertensive and has equal radial pulses , and her mediastinum is not widened on x-rays. Given well appearance and reassuring work-up, patient is stable to discharge home with outpatient primary care follow-up. I recommended [id number] omeprazole and Maalox max for symptom control. Strict emergency department return precautions were provided, patient indicated understanding. All questions were answered prior to departure. Discharged in good condition. Last Recorded V/S: Last Vital Signs Temp 35.9 C L 07/13/19 21: Pulse 70 07/13/19 21: Resp 18 07/13/19 21:26 BP 140/79 07/13/19 21: Pulse Ox 100 07/13/19 21:26 - Orders/Labs/Meds Orders: Active Orders 24 hr Category Date Time Status EKG 12 Lead [EKG Documentation Completion] [RC] STAT Care 07/13/19 21:26 Active Sodium Chloride 0.9% [Normal Saline] Med 07/13/19 21:27 Active 10 ml IV ASDIRECTED PRN Sodium Chloride 0.9% [Saline Flush] Med 07/13/19 21:27 Active 10 ml FLUSH ASDIRECTED PRN Sodium Chloride 0.9% [Saline Flush] Med 07/13/19 21:27 Active 2.5 ml FLUSH ASDIRECTED PRN Peripheral IV Insertion Adult [OM.PC] Stat Oth 07/13/19 21:27 Ordered Medication Orders Sodium Chloride (Saline Flush) 10 ml FLUSH ASDIRECTED PRN PRN Reason: Keep Vein Open Sodium Chloride (Saline Flush) 2.5 ml FLUSH ASDIRECTED PRN PRN Reason: Keep Vein Open Sodium Chloride (Normal Saline) 10 ml IV ASDIRECTED PRN PRN Reason: IV Use Labs: Laboratory Tests 07/13/19 07/13/19 07/13/19 Range/Units 21:33 21:33 21:33 WBC 10.36 (4.0-11.0) K/uL RBC 4.53 (4.30-5.90) M/uL Hgb 12.7 (12.0-16.0) g/dL Hct 39.1 (36.0-46.0) % MCV 86.3 (80.0-98.0) fL MCH 28.0 (27.0-32.0) pg MCHC 32.5 (31.0-37.0) g/dL RDW Std Deviation 43.1 (28.0-62.0) fl RDW Coeff of Betsy 14 (11.0-15.0) % Plt Count 370 (150-400) K/uL MPV 9.30 (7.40-12.00) fL Neut % (Auto) 56.6 (48.0-80.0) % Lymph % (Auto) 31.9 (16.0-40.0) % Addison % (Auto) 7.8 (0.0-15.0) % Eos % (Auto) 3.1 (0.0-7.0) % Baso % (Auto) 0.6 (0.0-1.5) % Neut # (Auto) 5.9 H (1.4-5.7) K/uL Lymph # (Auto) 3.3 H (0.6-2.4) K/uL Addison # (Auto) 0.8 (0.0-0.8) K/uL Eos # (Auto) 0.3 (0.0-0.7) K/uL Baso # (Auto) 0.1 (0.0-0.1) K/uL Nucleated RBC % 0.0 /100WBC Nucleated RBCs # 0 K/uL Sodium 141 (136-145) mmol/L Potassium 3.9 (3.5-5.1) mmol/L Chloride 105 (98-107) mmol/L Carbon Dioxide 26.2 (21.0-32.0) mmol/L BUN 19 H (7.0-18.0) mg/dL Creatinine 1.0 (0.6-1.0) mg/dL Est Cr Clr Drug Dosing 62.58 mL/min Estimated GFR (MDRD) 59.4 ml/min Glucose 111 H (74-106) mg/dL Calcium 9.1 (8.5-10.1) mg/dL Total Bilirubin 0.3 (0.2-1.0) mg/dL AST 18 (15-37) IU/L ALT 23 (14-63) IU/L Alkaline Phosphatase 97 (46-116) U/L Troponin I < 0.050 (0.000-0.056) ng/mL Total Protein 7.3 (6.4-8.2) g/dL Albumin 3.7 (3.4-5.0) g/dL Globulin 3.6 (2.6-4.0) g/dL Albumin/Globulin Ratio 1.0 (0.9-1.6) Lipase 83 (73-393) U/L HCG, Qual NEGATIVE (NEG) Meds: Medications Generic Name Dose Route Start Last Admin Trade Name Freq PRN Reason Stop Dose Admin Sodium Chloride 10 ml 07/13/19 21:27 Saline Flush FLUSH ASDIRECTED PRN Keep Vein Open Sodium Chloride 2.5 ml 07/13/19 21:27 Saline Flush FLUSH ASDIRECTED PRN Keep Vein Open Sodium Chloride 10 ml 07/13/19 21:27 Normal Saline IV ASDIRECTED PRN IV Use Discontinued Medications Generic Name Dose Route Start Last Admin Trade Name Freq PRN Reason Stop Dose Admin Acetaminophen 1,000 mg 07/13/19 21:47 07/13/19 21:54 Tylenol Extra Strength PO 07/13/19 21:48 1,000 mg ONETIME ONE Administration Al Hydroxide/Mg Hydroxide 15 0 ml 07/13/19 21:47 07/13/19 21:54 ml/ Lidocaine HCl 5 ml PO 07/13/19 21:48 20 each ONETIME ONE Administration Departure - Departure Time of Disposition: 23:09 Disposition: Home, Self-Care 01 Condition: Good Clinical Impression: Atypical chest pain, Hiatal hernia Instructions: Nonspecific Chest Pain, Adult, Gastroesophageal Reflux Disease, Adult, [id number] Referrals: Derek Guido MD [Primary Care Provider] - 1 Week (For follow-up of symptoms) Additional Instructions: Thank you for choosing the [facility] emergency department in [place] for your medical needs today. It was a pleasure caring for you. You were seen in the emergency department for chest pain. I recommend you start taking [id number] omeprazole as directed on the package along with Maalox Max to help address your reflux. Please follow-up with your primary medical doctor in the next 3 to 5 days for reevaluation. Please return the emergency department immediately if your symptoms worsen or if you feel worse. The following information is given to patients seen in the emergency department who are being discharged. This information is to outline your options for follow -up care. We provide all patients seen in our emergency department with a follow -up referral. The need for follow-up, as well as the timing and circumstances, are variable depending upon the specifics of your emergency department visit. If you don't have a primary care physician on staff, we will provide you with a referral. We always advise you to contact your personal physician following an emergency department visit to inform them of the circumstance of the visit and for follow-up with them and/or the need for any referrals to a consulting specialist. The emergency department will also refer you to a specialist when appropriate. This referral assures that you have the opportunity for follow-up care with a specialist. All of these measure are taken in an effort to provide you with optimal care, which includes your follow-up. Under all circumstances we always encourage you to contact your private physician who remains a resource for coordinating your care. When calling for follow-up care, please make the office aware that this follow-up is from your recent emergency room visit. If for any reason you are refused follow-up, please contact the [facility] Emergency Department at and asked to speak to the emergency department charge nurse. If you do not have a primary care physician that is caring for you, you can contact these clinics below to set up an appointment to establish care: [facility] [address] [place] [id number] [facility] [address] [place] [id number] Sepsis Event Note - Evaluation Sepsis Screening Result: No Definite Risk - Focused Exam Vital Signs: Vital Signs Temp Pulse Resp BP Pulse Ox 07/13/19 21:26 35.9 C L 70 18 140/79 100 Date Exam was Performed: 07/13/19 Time Exam was Performed: 23:11 - My Orders Last 24 Hours: My Active Orders 07/13/19 21:26 EKG 12 Lead [EKG Documentation Completion] [RC] STAT 07/13/19 21:27 Sodium Chloride 0.9% [Normal Saline] 10 ml IV ASDIRECTED PRN Sodium Chloride 0.9% [Saline Flush] 10 ml FLUSH ASDIRECTED PRN Sodium Chloride 0.9% [Saline Flush] 2.5 ml FLUSH ASDIRECTED PRN Peripheral IV Insertion Adult [OM.PC] Stat - Assessment/Plan Last 24 Hours: My Active Orders 07/13/19 21:26 EKG 12 Lead [EKG Documentation Completion] [RC] STAT 07/13/19 21:27 Sodium Chloride 0.9% [Normal Saline] 10 ml IV ASDIRECTED PRN Sodium Chloride 0.9% [Saline Flush] 10 ml FLUSH ASDIRECTED PRN Sodium Chloride 0.9% [Saline Flush] 2.5 ml FLUSH ASDIRECTED PRN Peripheral IV Insertion Adult [OM.PC] Stat
[2019-07-13] MEDS ORDERED: Alum Hydrox/Mag Hydrox/Simeth 15 ML, Lidocaine 2% 5 ML PO ONE ×2 (21:47)
[2019-07-13] MEDS ORDERED: Acetaminophen 500 MG Tab PO ONE (21:47)
[2019-07-13 22:02] LABS: BLOOD UREA NITROGEN,BUN 19 mg/dL (7.0-18.0); CARBON DIOXIDE,CO2 26.2 mmol/L (21.0-32.0); CHLORIDE,CL 105 mmol/L (98-107); GLUCOSE RANDOM 111 mg/dL (74-106); LIPASE 83 U/L (73-393); POTASSIUM,K 3.9 mmol/L (3.5-5.1); SODIUM,NA 141 mmol/L (136-145)
--- NOTE | 2019-07-13 22:52 | CR ---
INDICATION: Chest pain. History of hiatus hernia. TECHNIQUE: Two-view. FINDINGS: Lungs are clear. Pulmonary vascularity and cardiomediastinal silhouette are normal. Large air-fluid level behind the heart commensurate with hiatus hernia. No pleural effusion or pneumothorax. No bone finding of significance. IMPRESSION: 1. No acute cardiopulmonary disease. 2. Large hiatus hernia air-fluid level. Dictated by Jeanmarie Goldsmith MD @ Jul 13 2019 10:50PM Signed by Dr. Jeanmarie Goldsmith @ Jul 13 2019 10:51PM
[2019-07-14 00:27] VITALS: BP 130/80; PULSE 65
== END 2019-07-13 23:30 | disposition home or self-care (01) ==
LOC: MW.ED 21:24
DX: R07.89 Other chest pain (principal); K44.9 Diaphragmatic hernia without obstruction or gangrene; Z91.018 Allergy to other foods
CPT/HCPCS: 36415; 71046; 80053; 83690; 84484; 84703; 85025; 99285; A9270; 99284

== ENCOUNTER 2020-08-13 17:47 | Emergency (ER) | payer MEDICAID ==
[2020-08-13] MEDS ORDERED: Sodium Chloride 0.9% 2.5 ML Syringe FLUSH PRN (18:31)
[2020-08-13] MEDS ORDERED: Sodium Chloride 0.9% 10 ML Syringe FLUSH PRN (18:31)
[2020-08-13] MEDS ORDERED: Sodium Chloride 0.9% 1,000 ML IV ONE ×2 (18:33→21:32)
--- NOTE | 2020-08-13 18:34 | EDM.PDOC ---
ED HPI GENERAL MEDICAL PROBLEM - General Chief Complaint: Gastrointestinal Problem Stated Complaint: HAD SURRGERY AND IS VOMITTING Time Seen by Provider: 08/13/20 18:15 Source of Information: Reports: Patient History Limitations: Reports: No Limitations - History of Present Illness INITIAL COMMENTS - FREE TEXT/NARRATIVE: HISTORY AND PHYSICAL: History of present illness: The patient is a 42-year year presents to the emergency department with vomiting since 5 PM this evening. The patient had a reversal of a fundoplication for treatment of a hiatal hernia last Monday. The patient states that she was in surgery for over 7 hours and had a gastric bypass during that timeframe. The patient states that she has been following her medication routine religiously and has been doing very well. Then around 5 PM she started having dry heaves and vomited a handful of bile x2. She tried to call her general surgeon at [facility] but was unable to get through. Her surgeon was Dr. Rogers. The patient is now having left lateral side pain that extends around to her spine. She states that the spine pain is from an old ache and this is just exacerbating it. Review of systems: As per history of present illness and below otherwise all systems reviewed and negative. Past medical history: As per history of present illness and as reviewed below otherwise noncontributory. Surgical history: As per history of present illness and as reviewed below otherwise noncontributory. Social history: See social history for further information Family history: As per history of present illness and as reviewed below otherwise noncontributory. Physical exam: General: Well developed and well nourished. Alert and orientated x 3. Nontoxic in appearance and in no acute distress. Vital signs are stable and have been reviewed by me. Nursing notes were reviewed. HEENT: Atraumatic, normocephalic, pupils equal and reactive bilaterally, negative for conjunctival pallor or scleral icterus, mucous membranes moist, TMs normal bilaterally, throat clear, neck supple, nontender, trachea midline. No drooling or trismus noted. No meningeal signs. No hot potato voice noted. Lungs: Clear to auscultation bilaterally. No wheezes, rales, or rhonchi. Chest nontender. Normal work of breathing, no accessory muscles used. Heart: S1S2, regular rate and rhythm without overt murmur, gallops, or rubs. No JVD. No peripheral edema Abdomen: Soft, nondistended, nontender. Normoactive bowel sounds. There are multiple bruises from Lovenox injection. Healed insertion wounds of gastric bypass surgery last Monday. Skin: Intact, warm, dry. See abdomen Hematologic: No petechiae or purpra. Mucosa appropriate color and normal nail bed color and refill. Extremities: Atraumatic, moves all extremities per self without difficulty or deficits, negative for cords or calf pain. Neurovascular unremarkable. Neuro: Awake, alert, oriented. Cranial nerves II through XII unremarkable. Cerebellum unremarkable. Motor and sensory unremarkable throughout. Exam nonfocal. Psychiatric: Mood and affect are appropriate. Normal thought process. Answering questions appropriately. Notes: *This patient was seen and evaluated during the 2019 SARS-CoV-2 novel coronavirus pandemic period. Community viral transmission is ongoing at time of this encounter and the emergency department is operating under pandemic response procedures. As stated above the patient is a 50-year-old female who presents with left lateral side pain extending around to her spine which started after she vomited x2 around 5 PM this evening. The patient is concerned that there could be some altercation with the gastric bypass surgery she had last Monday. The patient states that she has been taking her medication routinely. She normally takes a Zofran at night but only during the day when needed. She states that she is only taking a liquid diet and can only taken 4 ounces at a time. I will order a CBC and a CMP and a CT with IV and oral contrast. As the patient can only take in a maximum of 4 ounces this will be a modified study. The CBC is unremarkable, CMP remarkable for AST 41, ALT 74, alkaline phosphatase 134. T abdomen pelvis IMPRESSION: There are postoperative changes from a Cande-en-Y gastric bypass surgery. Partial small bowel obstructive changes of the Cande limb are suspected with the point of obstruction at the jejunojejunostomy anastomosis. No other acute or significant findings. Spoke with Dr. Bates regarding patient's CT results and lab results along with patient's complaints of presentation to the emergency room and current status. Dr. Bates felt this was something that got stuck and would clear on its own. He wanted 2 L of fluids given. The patient's already had one so I have ordered a second liter to be given. He wants her to have a liquid diet and Zofran. He/she is to call the office in the morning. I have spoken with the patient about his instructions and she is agreeable to this discharge plan. I have talked with the patient about today's findings, in addition to providing specific details for plan of care. Reassessment at the time of disposition demonstrates that the patient is in no acute distress. The patient is stable for discharge, counseling was provided and we discussed in great detail signs and symptoms that would prompt them to return to the Emergency Department. Medication, follow up and supportive care measures were reviewed and discussed. Voices understanding and is agreeable to plan of care. Denies any further questions or concerns at this time. Diagnostics: BC, CMP, abdominal pelvis CT with IV and oral contrast Therapeutics: Zofran 4mg Prescription: Zofram 4mg every 6 to 8 hours as needed for nausea Impression: Partial small bowel obstructive changes of the Cande limb Plan: 1. You were evaluated today on an emergent basis. Your complaints of vomiting and dry heaves which lead to left side pain with blood work which your liver e nzymes were slightly elevated. Your see CT of the abdomen and pelvis showed IMPRESSION: There are postoperative changes from a Cande-en-Y gastric bypass surgery. Partial small bowel obstructive changes of the Cande limb are suspected with the point of obstruction at the jejunojejunostomy anastomosis. No other acute or significant findings. Spoke with Dr. Bates from [facility] [employer] for Dr. Rogers regarding your symptoms and test results. He wanted you to have a total of 2 L and to go home with just a liquid diet. If you do not want to take your medicines until you follow-up with your surgeon tomorrow when you call his office that is fine. He said you can take Zofran as needed. He thinks this will clear itself. Again if you start having vomiting you can return to the emergency department. 2. You can alternate Tylenol and ibuprofen as needed for pain and fever management. 3. We encourage you to follow up with your primary care provider and/or recommended specialist in the next few days for re-evaluation and further care/management. 4. If your symptoms should worsen, new symptoms develop or any of the signs and symptoms we discussed should arise please return to the emergency room or call 911 (if needed). Definitive disposition and diagnosis as appropriate pending reevaluation and review of above. upper and lower abdomen Pain Score (Numeric/FACES): 8 - Related Data Allergies Allergy/AdvReac Type Severity Reaction Status Date / Time walnut Allergy burning in Verified 07/13/19 21:30 mouth, unable to see Home Meds: Home Meds Gabapentin 800 mg PO BID 11/16/15 [History] Meloxicam 15 mg PO DAILY 11/16/15 [History] DULoxetine HCl [Duloxetine HCl] 90 mg PO BEDTIME 05/02/17 [History] Metoprolol Succinate 25 mg PO BID 05/02/17 [History] Magnesium Chloride [Mag-64] 64 mg PO DAILY 07/13/19 [History] Potassium Gluconate [Potassium] 99 mg PO DAILY 07/13/19 [History] Ondansetron [Zofran ODT] 4 mg PO Q6H PRN #10 tab.dis 08/13/20 [Rx] Past Medical History HEENT History: Reports: None Other HEENT History: states "occasional blurred vision due to gabapentin" Cardiovascular History: Reports: Arrhythmia, Other (See Below) Other Cardiovascular History: palpitations, SVT, NSVT, PVCs Respiratory History: Reports: SOB Other Respiratory History: uses CPAP Gastrointestinal History: Reports: GERD Other Gastrointestinal History: s/p hiatal hernia repair (2019) Genitourinary History: Reports: None OFFICE EMPLOYEE History: Reports: , Spontaneous , Other (See Below) Other OFFICE EMPLOYEE History: irregular menses, pelvic pain Musculoskeletal History: Reports: Fibromyalgia, Other (See Below) Other Musculoskeletal History: joint and muscle pain, shoulder impingement bilateral Neurological History: Reports: Other (See Below) Other Neuro History: 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 Psychiatric History: Reports: Other (See Below) Other Psychiatric History: chronic fatigue Endocrine/Metabolic History: Reports: None Hematologic History: Reports: None Immunologic History: Reports: None Oncologic (Cancer) History: Reports: None Dermatologic History: Reports: None - Infectious Disease History Infectious Disease History: Reports: None - Past Surgical History Head Surgeries/Procedures: Reports: None HEENT Surgical History: Reports: None Cardiovascular Surgical History: Reports: None Respiratory Surgical History: Reports: None GI Surgical History: Reports: Appendectomy Female Surgical History: Reports: Section, Other (See Below) Other Female Surgeries/Procedures: hysteroscopy with essure Endocrine Surgical History: Reports: None Neurological Surgical History: Reports: None Musculoskeletal Surgical History: Reports: Shoulder Surgery, Other (See Below) Other Musculoskeletal Surgeries/Procedures:: Right shoulder arthoscopy, Right f oot surgery Oncologic Surgical History: Reports: None Dermatological Surgical History: Reports: None Social & Family History - Family History Family Medical History: No Pertinent Family History - Tobacco Use Tobacco Use Status *Q: Never Tobacco User Second Hand Smoke Exposure: No - Caffeine Use Caffeine Use: Reports: None - Recreational Drug Use Recreational Drug Use: No ED ROS GENERAL - Review of Systems Review Of Systems: Comprehensive ROS is negative, except as noted in HPI. ED EXAM, GI/ABD - Physical Exam Exam: See Below (See dictation) Course - Vital Signs Last Recorded V/S: Last Vital Signs Temp 97.2 F 08/13/20 18:13 Pulse 78 08/13/20 23:11 Resp 18 08/13/20 23:11 BP 134/75 08/13/20 23:11 Pulse Ox 97 08/13/20 23:11 - Orders/Labs/Meds Orders: Active Orders 24 hr Category Date Time Status Saline Lock Insert [OM.PC] Stat Oth 08/13/20 18:31 Ordered Labs: Laboratory Tests 08/13/20 08/13/20 Range/Units 18:53 18:53 WBC 10.19 (4.0-11.0) K/uL RBC 4.73 (4.30-5.90) M/uL Hgb 13.3 (12.0-16.0) g/dL Hct 39.2 (36.0-46.0) % MCV 82.9 (80.0-98.0) fL MCH 28.1 (27.0-32.0) pg MCHC 33.9 (31.0-37.0) g/dL RDW Std Deviation 43.6 (28.0-62.0) fl RDW Coeff of Betsy 14 (11.0-15.0) % Plt Count 466 H (150-400) K/uL MPV 9.70 (7.40-12.00) fL Neut % (Auto) 65.3 (48.0-80.0) % Lymph % (Auto) 21.5 (16.0-40.0) % [place] % (Auto) 7.7 (0.0-15.0) % Eos % (Auto) 4.7 (0.0-7.0) % Baso % (Auto) 0.8 (0.0-1.5) % Neut # (Auto) 6.7 H (1.4-5.7) K/uL Lymph # (Auto) 2.2 (0.6-2.4) K/uL [place] # (Auto) 0.8 (0.0-0.8) K/uL Eos # (Auto) 0.5 (0.0-0.7) K/uL Baso # (Auto) 0.1 (0.0-0.1) K/uL Nucleated RBC % 0.0 /100WBC Nucleated RBCs # 0 K/uL Sodium 137 (136-145) mmol/L Potassium 4.2 (3.5-5.1) mmol/L Chloride 99 (98-107) mmol/L Carbon Dioxide 25.5 (21.0-32.0) mmol/L BUN 16 (7.0-18.0) mg/dL Creatinine 0.8 (0.6-1.0) mg/dL Est Cr Clr Drug Dosing 77.38 mL/min Estimated GFR (MDRD) > 60.0 ml/min Glucose 92 (74-106) mg/dL Calcium 9.3 (8.5-10.1) mg/dL Total Bilirubin 0.2 (0.2-1.0) mg/dL AST 41 H (15-37) IU/L ALT 74 H (14-63) IU/L Alkaline Phosphatase 134 H (46-116) U/L Total Protein 7.7 (6.4-8.2) g/dL Albumin 3.7 (3.4-5.0) g/dL Globulin 4.0 (2.6-4.0) g/dL Albumin/Globulin Ratio 0.9 (0.9-1.6) Meds: Medications Discontinued Medications Generic Name Dose Route Start Last Admin Trade Name Freq PRN Reason Stop Dose Admin Sodium Chloride 1,000 mls @ 999 mls/hr 08/13/20 18:33 08/13/20 18:51 Normal Saline IV 08/13/20 19:33 999 mls/hr .BOLUS ONE Administration Sodium Chloride 1,000 mls @ 999 mls/hr 08/13/20 21:32 08/13/20 21:40 Normal Saline IV 08/13/20 22:32 999 mls/hr .BOLUS ONE Administration Iopamidol 100 ml 08/13/20 19:45 08/13/20 20:16 Iopamidol 755 Mg/Ml 500 Ml Multipack Bottle IVPUSH 08/13/20 19:46 100 ml ONETIME STA Administration Sodium Chloride 10 ml 08/13/20 18:31 08/13/20 18:51 Sodium Chloride 0.9% 10 Ml Syringe FLUSH 10 ml ASDIRECTED PRN Administration Keep Vein Open Sodium Chloride 2.5 ml 08/13/20 18:31 08/13/20 18:51 Sodium Chloride 0.9% 2.5 Ml Syringe FLUSH 2.5 ml ASDIRECTED PRN Administration Keep Vein Open Departure - Departure Time of Disposition: 22:14 Disposition: Home, Self-Care 01 Condition: Good Clinical Impression: Partial small bowel obstruction - Discharge Information *PRESCRIPTION DRUG MONITORING PROGRAM REVIEWED*: Not Applicable *COPY OF PRESCRIPTION DRUG MONITORING REPORT IN PATIENT LEANN: Not Applicable Prescriptions: Ondansetron [Zofran ODT] 4 mg PO Q6H PRN #10 tab.dis PRN Reason: Nausea Instructions: Dehydration, Adult, [id number] Referrals: PCP,None [Primary Care Provider] - Forms: ED Department Discharge Additional Instructions: The following information is given to patients seen in the emergency department who are being discharged to home. This information is to outline your options for follow-up care. We provide all patients seen in our emergency department with a follow-up referral. The need for follow-up, as well as the timing and circumstances, are variable depending upon the specifics of your emergency department visit. If you don't have a primary care physician on staff, we will provide you with a referral. We always advise you to contact your personal physician following an emergency department visit to inform them of the circumstance of the visit and for follow-up with them and/or the need for any referrals to a consulting specialist. The emergency department will also refer you to a specialist when appropriate. This referral assures that you have the opportunity for follow-up care with a specialist. All of these measure are taken in an effort to provide you with optimal care, which includes your follow-up. Under all circumstances we always encourage you to contact your private physician who remains a resource for coordinating your care. When calling for follow-up care, please make the office aware that this follow-up is from your recent emergency room visit. If for any reason you are refused follow-up, please contact the [facility] Emergency Department at and asked to speak to the emergency department charge nurse. [facility] - [facility] [address] [place] [address] [facility] [address] [place] [id number] Plan: 1. You were evaluated today on an emergent basis. Your complaints of vomiting and dry heaves which lead to left side pain with blood work which your liver enzymes were slightly elevated. Your see CT of the abdomen and pelvis showed IMPRESSION: There are postoperative changes from a Cande-en-Y gastric bypass surgery. Partial small bowel obstructive changes of the Cande limb are suspected with the point of obstruction at the jejunojejunostomy anastomosis. No other acute or significant findings. Spoke with Dr. Bates from [facility] [employer] for Dr. Rogers regarding your symptoms and test results. He wanted you to have a total of 2 L and to go home with just a liquid diet. If you do not want to take your medicines until you follow-up with your surgeon tomorrow when you call his office that is fine. He said you can take Zofran as needed. He thinks this will clear itself. Again if you start having vomiting you can return to the emergency department. 2. You can alternate Tylenol and ibuprofen as needed for pain and fever management. 3. We encourage you to follow up with your primary care provider and/or recommended specialist in the next few days for re-evaluation and further care/management. 4. If your symptoms should worsen, new symptoms develop or any of the signs and symptoms we discussed should arise please return to the emergency room or call 911 (if needed). Sepsis Event Note (ED) - Evaluation Sepsis Screening Result: No Definite Risk - Focused Exam Vital Signs: Vital Signs Pulse Resp BP Pulse Ox 08/13/20 23:11 78 18 134/75 97 - My Orders Last 24 Hours: My Active Orders 08/13/20 18:31 Saline Lock Insert [OM.PC] Stat - Assessment/Plan Last 24 Hours: My Active Orders 08/13/20 18:31 Saline Lock Insert [OM.PC] Stat
[2020-08-13 19:19] LABS: BLOOD UREA NITROGEN,BUN 16 mg/dL (7.0-18.0); CARBON DIOXIDE,CO2 25.5 mmol/L (21.0-32.0); CHLORIDE,CL 99 mmol/L (98-107); GLUCOSE RANDOM 92 mg/dL (74-106); POTASSIUM,K 4.2 mmol/L (3.5-5.1); SODIUM,NA 137 mmol/L (136-145)
[2020-08-13] MEDS ORDERED: Iopamidol 755 MG/ML 500 ML Multipack Bottle IVPUSH STA (19:45)
--- NOTE | 2020-08-13 21:05 | CT ---
INDICATION: One-week status post gastric bypass surgery with vomiting and pain. TECHNIQUE: CT abdomen and pelvis acquired with 100 cc Isovue 370 IV and oral contrast. COMPARISON: May 17, 2019. FINDINGS: There are Cande EN Y gastric bypass changes. Oral contrast is present in the proximal aspect of the Cande limb. Distal segment of the Cande limb is moderately distended with stool or food buildup measuring 3.5 cm in diameter. The appearance suggests a partial bowel obstruction at the jejunojejunostomy anastomosis. Remainder of the GI tract is unremarkable. The liver is normal in size, shape and attenuation. Status post cholecystectomy. The spleen, adrenal glands and pancreas are within normal limits. The kidneys are unremarkable. Pelvic organs are unremarkable. No lymphadenopathy evident. No free air or significant free fluid. The lung bases are clear. IMPRESSION: There are postoperative changes from a Cande-en-Y gastric bypass surgery. Partial small bowel obstructive changes of the Cande limb are suspected with the point of obstruction at the jejunojejunostomy anastomosis. No other acute or significant findings. Please note that all CT scans at this facility use dose modulation, iterative reconstruction, and/or weight-based dosing when appropriate to reduce radiation dose to as low as reasonably achievable. Dictated by Brooks Groves MD @ 08/13/2020 9:03:[address] Brooks Groves @ Aug 13 2020 9:03PM
[2020-08-13 23:12] VITALS: BP 134/75; PULSE 78
== END 2020-08-13 23:12 | disposition home or self-care (01) ==
LOC: MW.ED 17:47
DX: K56.600 Partial intestinal obstruction, unspecified as to cause (principal); Z91.018 Allergy to other foods
CPT/HCPCS: 36415; 74177; 80053; 85025; 99284; J7030; Q9967